=== PATIENT | female | born 1985 | race Two or more races ===

== ENCOUNTER 2024-04-22 14:10 | Emergency (ER) | payer OTHER ==
[~2024-04-22] VITALS: Ht 162.6 cm; Wt 66.0 kg
[2024-04-22 14:14] VITALS: TEMP 98.2
[2024-04-22] MEDS: ACETAMINOPHEN 325 MG TABLET PO ONE (18:17)
[2024-04-22] MEDS ORDERED: IBUP-1492 PO (18:30)
[2024-04-22] MEDS ORDERED: ONDA-104 PO (18:30)
[2024-04-22 19:00] VITALS: BP 129/76; PULSE 83; RESP 18; O2SAT 99
== END 2024-04-22 19:40 | disposition home or self-care (01) ==
LOC: EMS 14:14
DX: S06.0XAA Concussion with loss of consciousness status unknown, initial encounter (principal); Y04.0XXA Assault by unarmed brawl or fight, initial encounter; Y93.89 Activity, other specified; Y92.89 Other specified places as the place of occurrence of the external cause; Y99.8 Other external cause status
CPT/HCPCS: 70450; 84703; 99284